=== PATIENT | male | born 1995 | race American Indian/Alaskan Native ===

== ENCOUNTER 2017-07-01 23:17 | Emergency (ER) | payer MEDICAID ==
[2017-07-01] MEDS ORDERED: SUBLIMAZE ONE (23:22)
[2017-07-02] MEDS ORDERED: SUBLIMAZE IV ONE (00:07)
[2017-07-02] MEDS ORDERED: BOOSTRIX IM ONE (00:09)
[2017-07-02] MEDS ORDERED: NORCO 10/325 PO ONE (00:10)
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
== END 2017-07-02 02:00 | disposition home or self-care (01) ==
LOC: ED 23:17
DX: S81.801A Unspecified open wound, right lower leg, initial encounter (principal); F17.200 Nicotine dependence, unspecified, uncomplicated; W34.09XA Accidental discharge from other specified firearms, initial encounter; Y93.89 Activity, other specified; Y92.89 Other specified places as the place of occurrence of the external cause; Y99.8 Other external cause status
CPT/HCPCS: 73620; 90471; 90715; 96374; 99283; J3010